=== PATIENT | female | born 1960 | race Caucasian/White ===

== ENCOUNTER 2017-03-17 09:24 | Day surgery (SDC) | payer BC ==
[~2017-03-17 09:24] MED LIST: Midazolam 1 MG/ML 2 ML SDV ONE; Propofol 200 MG/20 ML SDV ONE; fentaNYL 100 MCG/2 ML SDV ONE
[2017-03-17] MEDS ORDERED: Sodium Chloride 0.9% 1,000 ML IV SCH (10:00)
--- NOTE | 2017-03-17 13:01 | OR ---
DATE OF PROCEDURE: 03/17/2017 PROCEDURE PERFORMED: Colonoscopy. FINDINGS: Sigmoid colon polyp, approximately 5 mm, completely removed using cold biopsy forceps. COMPLICATIONS: None. EYELET CUTTER: None. PREOPERATIVE DIAGNOSIS: Screening colonoscopy. POSTOPERATIVE DIAGNOSIS: Screening colonoscopy. RISKS: Risks, benefits, alternatives, limitations including but not limited to infection, bleeding, and perforation were explained to the patient who wished to proceed. PROCEDURE IN DETAIL: The patient was placed in left lateral decubitus position. Digital rectal exam was performed without abnormality. The scope was introduced and advanced atraumatically to the ileocecal valve. The scope was brought back to the ascending, transverse, descending colon, and retroflexed. The patient had very few diverticula. The aforementioned polyp was identified and completely removed. No abnormalities on retroflexion. The patient tolerated the procedure well. Juan M Yates MD /[id number]
== END 2017-03-17 13:20 | disposition home or self-care (01) ==
LOC: JP.SDS 09:24
PROVIDERS: ATTEND Surgery
DX: Z12.11 Encounter for screening for malignant neoplasm of colon (principal); K63.5 Polyp of colon; K57.30 Diverticulosis of large intestine without perforation or abscess without bleeding; I10 Essential (primary) hypertension
CPT/HCPCS: 45380; 88305; J2250; J2704; J3010; J7040

== ENCOUNTER 2020-06-16 06:17 | Day surgery (SDC) | payer BC ==
[2020-06-16] MEDS ORDERED: Bupivacaine 0.5% 50 ML MDV ONE (06:49)
[2020-06-16] MEDS ORDERED: Lidocaine 1% with EPINEPHrine 1:100,000 50 ML MDV ONE (06:49)
[2020-06-16] MEDS ORDERED: metroNIDAZOLE/Normal Saline 500 MG in Premix Bag 1 BAG IV ONE (07:00)
[2020-06-16] MEDS ORDERED: ceFAZolin 2 GM in Premix Bag 1 BAG IV ONE (07:00)
[2020-06-16] MEDS ORDERED: Sodium Chloride 0.9% 1,000 ML IV SCH (07:00)
[2020-06-16] MEDS ORDERED: fentaNYL 250 MCG/5 ML SDV ONE (07:18)
[2020-06-16] MEDS ORDERED: Propofol 200 MG/20 ML SDV ONE (07:19)
[2020-06-16] MEDS ORDERED: Glycopyrrolate 0.2 MG/ML 5 ML MDV ONE (07:19)
[2020-06-16] MEDS ORDERED: Succinylcholine 200 MG/10 ML MDV ONE (07:19)
[2020-06-16] MEDS ORDERED: Ondansetron 4 MG/2 ML SDV ONE (07:19)
[2020-06-16] MEDS ORDERED: Rocuronium 50 MG/5 ML Vial ONE (07:19)
[2020-06-16] MEDS ORDERED: Neostigmine Methylsulfate 1 MG/ML 5 ML Syringe ONE (07:19)
[2020-06-16] MEDS ORDERED: Dexamethasone 4 MG/ML SDV ONE (07:19)
[2020-06-16] MEDS ORDERED: Potassium Chloride 20 MEQ, Lidocaine 1% 2 ML in Sodium Chloride 0.9% 100 ML IV ONE (08:00)
[2020-06-16] MEDS ORDERED: Potassium Chloride 20 MEQ in Premix Bag 1 BAG IV ONE (08:00)
[2020-06-16] MEDS ORDERED: Benzocaine/Cetylpyridinium/Menthol Lozenge MUCMEM PRN (08:45)
[2020-06-16] MEDS ORDERED: Docusate Sodium 100 MG Cap PO PRN (08:45)
[2020-06-16] MEDS ORDERED: hydrOXYzine HCL 100 MG/2 ML SDV IM PRN (08:45)
[2020-06-16] MEDS ORDERED: Zolpidem 5 MG Tab PO PRN (08:45)
[2020-06-16] MEDS ORDERED: Acetaminophen/HYDROcodone 325-5 MG Tab PO PRN (08:45)
[2020-06-16] MEDS ORDERED: Sodium Chloride 0.9% 10 ML ONE (09:06)
[2020-06-16] MEDS ORDERED: ePHEDrine 50 MG/ML SDV ONE (09:06)
--- NOTE | 2020-06-16 12:21 | OR ---
DATE OF PROCEDURE: 06/16/2020 SURGEON: Juan M Yates MD PROCEDURES: 1. Transversus abdominis plane blocks bilaterally. 2. Bilateral rectus sheath blocks. COMPLICATION: None. SENIOR PEOPLESOFT DEVELOPER: None. RISKS: Risks, benefits, alternatives, and limitations including, but not limited to infection, bleeding, injury to abdominal structures were explained to the patient and they wished to proceed. PROCEDURE IN DETAIL: The patient was placed in supine position. Left transversus plane was identified first. This was identified using 13 megahertz ultrasound probe. 20% of the solution was injected. This was repeated on the right side and then repeated on bilateral rectus muscles. In no time was the needle blindly advanced or advanced into the perineum. The patient tolerated the procedure well. Juan M Yates MD /[id number]
--- NOTE | 2020-06-16 12:43 | OR ---
DATE OF PROCEDURE: 06/16/2020 SURGEON: Juan M Yates MD PROCEDURE: Laparoscopic cholecystectomy. PREOPERATIVE DIAGNOSES: Cholelithiasis, cholecystitis. POSTOPERATIVE DIAGNOSES: Cholelithiasis, cholecystitis. COMPLICATIONS: None. DOWNSTREAM BIOMANUFACTURING TECHNICIAN: None. ANESTHESIA: General. RISKS: Risks, benefits, alternatives, and limitations including, but not limited to infection, bleeding, injury to abdominal structures, bladder, blood vessels, and intestines. We also discussed cystic duct leaks, common bile duct injuries, and the possibility of open repair. PROCEDURE IN DETAIL: The patient was placed in supine position. A supraumbilical curvilinear incision was made. A Veress needle was used to enter the abdomen without abnormality. A drop test was performed without abnormality. An additional 10 and two 5 mm ports were entered under direct visualization. The gallbladder was retracted cephalad. The infundibulum was retracted inferolaterally. Using blunt dissection, a "clear view" of the gallbladder was obtained with a single pulsatile structure entering the gallbladder and a single non-pulsatile structure in the gallbladder. These were subsequently clipped x3 and transected. Of note, the clips completely crossed the lumen on both structures. The remaining 1/3rd of the gallbladder was removed off the gallbladder bed without difficulty. This was delivered through the superior port with a bag. The air in the abdomen was then dropped to 7 mmHg pressures. No venous or arterial bleeding was noted. The abdomen was irrigated with approximately 1 L of irrigation. The liquid was removed. The wounds were closed with 3-0 Vicryl and 4-0 Vicryl in interrupted running fashion. Dermabond was applied. The patient tolerated the procedure well. Juan M Yates MD /[id number]
== END 2020-06-16 12:50 | disposition home or self-care (01) ==
LOC: JP.SDS 06:17
PROVIDERS: ATTEND Surgery
DX: K81.1 Chronic cholecystitis (principal); K82.8 Other specified diseases of gallbladder; I10 Essential (primary) hypertension; E66.9 Obesity, unspecified; Z68.37 Body mass index [BMI] 37.0-37.9, adult; Z98.890 Other specified postprocedural states
CPT/HCPCS: 36415; 47562; 80053; 85027; A9270; J0171; J0330; J0690; J1100; J2405; J2704; J2710; J2795; J3010; J3490; J7030; 88304